=== PATIENT | female | born 1990 | race Caucasian/White ===

== ENCOUNTER 2019-08-25 12:17 | Outpatient (CLI) | payer OTHER ==
--- NOTE | 2019-08-25 13:52 | RAD ---
LEFT FOOT 3 VIEWS: Date: 08/25/2019 HISTORY: Injury to foot. FINDINGS: There are no signs of fracture or dislocation. IMPRESSION: Negative left foot. POS: [facility]
== END 2019-08-25 12:18 | disposition home or self-care (01) ==
LOC: BICRAD 12:17
DX: M79.672 Pain in left foot (principal)